=== PATIENT | female | born 1965 | race Two or more races ===

== ENCOUNTER → 2017-06-14 12:50 | Outpatient (CLI) | payer OTHER ==
[~2017-06-14 12:50] MED LIST: AMOX1TAB5 PO; FLONASE16 GM NS; IOPHEN DM-100 MG/5 M PO; METFORMIN HCL500 MG; MOTRIN800 MG PO; SEPTRA DS TABLE1 TAB PO; ZYRTEC10 MG PO
== END | disposition home or self-care (01) ==
LOC: LAB 12:50
DX: J11.1 Influenza due to unidentified influenza virus with other respiratory manifestations (principal)

== ENCOUNTER 2017-09-20 12:28 | Outpatient (CLI) | payer OTHER ==
[~2017-09-20] VITALS: Ht 154.9 cm; Wt 89.4 kg
== END 2017-09-20 12:40 | disposition home or self-care (01) ==
LOC: OFIC 805 12:28
DX: J03.80 Acute tonsillitis due to other specified organisms (principal); J30.89 Other allergic rhinitis; R22.1 Localized swelling, mass and lump, neck

== ENCOUNTER 2018-07-10 12:42 | Outpatient (CLI) | payer OTHER ==
[~2018-07-10] VITALS: Ht 152.4 cm; Wt 86.2 kg
== END 2018-07-10 13:00 | disposition home or self-care (01) ==
LOC: OFIC 805 12:42
DX: G47.63 Sleep related bruxism (principal); M26.69 Other specified disorders of temporomandibular joint; M62.838 Other muscle spasm

== ENCOUNTER → 2018-08-16 11:16 | Outpatient (CLI) | payer OTHER | END | disposition home or self-care (01) | LOC: LAB 11:16 | DX: E78.49 Other hyperlipidemia (principal); R42 Dizziness and giddiness; Z00.00 Encounter for general adult medical examination without abnormal findings; R10.2 Pelvic and perineal pain ==

== ENCOUNTER → 2018-08-21 06:41 | Outpatient (CLI) | payer OTHER | END | disposition home or self-care (01) | LOC: LAB 06:41 | DX: D64.89 Other specified anemias (principal); M05.89 Other rheumatoid arthritis with rheumatoid factor of multiple sites; Z79.1 Long term (current) use of non-steroidal anti-inflammatories (NSAID); Z01.810 Encounter for preprocedural cardiovascular examination; I11.9 Hypertensive heart disease without heart failure; N39.8 Other specified disorders of urinary system ==

== ENCOUNTER → 2018-09-16 15:00 | Outpatient (CLI) | payer OTHER | END | disposition home or self-care (01) | LOC: LAB 15:00 | DX: J11.1 Influenza due to unidentified influenza virus with other respiratory manifestations (principal); A49.8 Other bacterial infections of unspecified site; R50.9 Fever, unspecified ==

== ENCOUNTER 2018-09-26 10:08 | Outpatient (CLI) | payer OTHER | END 2018-09-26 16:33 | disposition home or self-care (01) | LOC: RAD 10:08 | DX: J45.41 Moderate persistent asthma with (acute) exacerbation (principal) ==

== ENCOUNTER → 2019-08-29 06:37 | Outpatient (CLI) | payer OTHER | END | disposition home or self-care (01) | LOC: LAB 06:37 | PROVIDERS: ATTEND Internal Medicine | DX: E13.69 Other specified diabetes mellitus with other specified complication (principal); I10 Essential (primary) hypertension; E55.9 Vitamin D deficiency, unspecified ==

== ENCOUNTER 2019-09-15 15:53 | Emergency (ER) | payer OTHER ==
[~2019-09-15] VITALS: Ht 152.4 cm; Wt 81.6 kg
== END 2019-09-15 20:02 | disposition home or self-care (01) ==
LOC: ER 15:53
DX: S43.492A Other sprain of left shoulder joint, initial encounter (principal); S13.8XXA Sprain of joints and ligaments of other parts of neck, initial encounter; M54.6 Pain in thoracic spine; V49.9XXA Car occupant (driver) (passenger) injured in unspecified traffic accident, initial encounter; Y93.89 Activity, other specified; Y92.488 Other paved roadways as the place of occurrence of the external cause; Y99.8 Other external cause status

== ENCOUNTER → 2019-10-08 07:10 | Outpatient (CLI) | payer OTHER ==
[~2019-10-08 07:10] MED LIST changes: +DIOVAN40 MG; +METFORMIN HCL500 M2
== END | disposition home or self-care (01) ==
LOC: RAD 07:10 → LAB 07:10
PROVIDERS: ATTEND Physical Medicine & Rehabilitation
DX: M65.812 Other synovitis and tenosynovitis, left shoulder (principal); M65.822 Other synovitis and tenosynovitis, left upper arm

== ENCOUNTER 2019-10-13 13:53 | Outpatient (CLI) | payer OTHER | END 2019-10-13 16:38 | disposition home or self-care (01) | LOC: CERTIFICAD 13:53 | PROVIDERS: ATTEND Family Medicine | DX: Z11.1 Encounter for screening for respiratory tuberculosis (principal) ==

== ENCOUNTER 2019-11-10 13:00 | Outpatient (CLI) | payer OTHER | END 2019-11-10 15:00 | disposition home or self-care (01) | LOC: PPH VACUNA 13:00 | DX: Z23 Encounter for immunization (principal) ==

== ENCOUNTER 2019-11-11 08:00 | Outpatient (CLI) | payer OTHER | END 2019-11-11 15:00 | disposition home or self-care (01) | LOC: LAB 08:00 | DX: D64.89 Other specified anemias (principal); J11.1 Influenza due to unidentified influenza virus with other respiratory manifestations; E78.89 Other lipoprotein metabolism disorders; E03.8 Other specified hypothyroidism; N39.0 Urinary tract infection, site not specified; Z85.43 Personal history of malignant neoplasm of ovary; E11.9 Type 2 diabetes mellitus without complications; D51.8 Other vitamin B12 deficiency anemias; E55.9 Vitamin D deficiency, unspecified ==

== ENCOUNTER 2020-02-09 15:28 | Outpatient (CLI) | payer OTHER | END 2020-02-09 18:00 | disposition home or self-care (01) | LOC: PPH VACUNA 15:28 | DX: Z23 Encounter for immunization (principal) ==

== ENCOUNTER → 2020-08-31 14:31 | Outpatient (CLI) | payer OTHER | END | disposition home or self-care (01) | LOC: LAB 14:31 | PROVIDERS: ATTEND Dentist General Practice | DX: Z20.828 Contact with and (suspected) exposure to other viral communicable diseases (principal) ==

== ENCOUNTER → 2020-10-14 09:10 | Outpatient (CLI) | payer OTHER | END | disposition home or self-care (01) | LOC: LAB 09:10 | PROVIDERS: ATTEND Emergency Medicine Pediatric Emergency Medicine | DX: Z03.818 Encounter for observation for suspected exposure to other biological agents ruled out (principal) ==

== ENCOUNTER → 2020-11-22 | Outpatient (CLI) | payer OTHER | END | disposition home or self-care (01) | LOC: PPH VACUNA 06:11 | DX: Z23 Encounter for immunization (principal) ==

== ENCOUNTER 2021-02-16 15:27 | Outpatient (CLI) | payer OTHER | END 2021-02-16 15:31 | disposition home or self-care (01) | LOC: LAB 15:27 | DX: Z03.818 Encounter for observation for suspected exposure to other biological agents ruled out (principal) ==

== ENCOUNTER 2021-05-27 13:08 | Outpatient (CLI) | payer OTHER | END 2021-05-27 23:00 | disposition home or self-care (01) | LOC: LAB 13:08 | PROVIDERS: ATTEND Emergency Medicine Pediatric Emergency Medicine | DX: Z20.818 Contact with and (suspected) exposure to other bacterial communicable diseases (principal); Z20.828 Contact with and (suspected) exposure to other viral communicable diseases ==

== ENCOUNTER 2021-11-15 09:49 | Outpatient (CLI) | payer OTHER | END 2021-11-15 09:54 | disposition home or self-care (01) | LOC: PPH VACUNA 09:49 | PROVIDERS: ATTEND Emergency Medicine Pediatric Emergency Medicine | DX: Z23 Encounter for immunization (principal) ==

== ENCOUNTER → 2021-12-01 06:00 | Outpatient (CLI) | payer OTHER | END | disposition home or self-care (01) | LOC: LAB 06:00 | PROVIDERS: ATTEND General Practice | DX: M54.2 Cervicalgia (principal); Z00.00 Encounter for general adult medical examination without abnormal findings; E78.5 Hyperlipidemia, unspecified; E55.9 Vitamin D deficiency, unspecified; N39.0 Urinary tract infection, site not specified; R42 Dizziness and giddiness; R10.9 Unspecified abdominal pain ==

== ENCOUNTER 2022-02-14 15:55 | Outpatient (CLI) | payer OTHER | END 2022-02-14 16:00 | disposition home or self-care (01) | LOC: LAB 15:55 | PROVIDERS: ATTEND Obstetrics & Gynecology | DX: Z20.828 Contact with and (suspected) exposure to other viral communicable diseases (principal); Z20.818 Contact with and (suspected) exposure to other bacterial communicable diseases ==

== ENCOUNTER 2022-03-21 13:00 | Outpatient (CLI) | payer OTHER | END 2022-03-21 13:04 | disposition home or self-care (01) | LOC: TOM 13:00 → RAD 15:46 | PROVIDERS: ATTEND Internal Medicine Pulmonary Disease | DX: J45.31 Mild persistent asthma with (acute) exacerbation (principal); U07.1 COVID-19; R06.02 Shortness of breath ==

== ENCOUNTER 2022-09-12 12:05 | Outpatient (CLI) | payer OTHER | END 2022-09-12 12:06 | disposition home or self-care (01) | LOC: MAMO-SONO 12:05 | PROVIDERS: ATTEND Surgery | DX: N60.11 Diffuse cystic mastopathy of right breast (principal); N60.12 Diffuse cystic mastopathy of left breast; Z12.31 Encounter for screening mammogram for malignant neoplasm of breast ==

== ENCOUNTER → 2022-11-29 09:10 | Outpatient (CLI) | payer OTHER ==
[2022-11-29 08:42] LABS: HEMOGLOBIN 11.1 g/dL (12.0-15.00); MEAN CELL VOLUME 83.2 fL (80.00-100.00); MEAN CORPUSCULAR HEMOGLOBIN 27.2 pg (27.00-32.0); MEAN CORPUSCULAR HGB CONC 32.7 g/dl (32.0-36.0); PLATELET COUNT 228 K/uL (150-450); RED BLOOD COUNT 4.09 M/uL (4.00-6.00); RED CELL DISTRIBUTION WIDTH 14.2 % (11.5-14.5)
[2022-11-29 09:30] LABS: ALBUMIN 3.7 gm/dL (3.4-5.0); BILIRUBIN TOTAL 0.55 mg/dL (0.3-1.2); BILIRUBIN,CONJUGATED 0.14 mg/dL (0.0-0.2); BILIRUBIN,UNCONJUGATED 0.41 mg/dL (0.0-0.6); CALCIUM 8.7 mg/dL (8.5-10.1); CHOL HDL RATIO 5.1 (0-5.0); CREATININE SERUM 0.48 mg/dL (0.55-1.02); GFR 132.83; GLOBULINA 3.9 G/DL (2.4-3.5); POTASSIUM 3.63 mEq/L (3.5-5.1); T4 TOTAL 10.02 UG/DL (4.8-13.9); TOTAL PROTEIN 7.6 gm/dL (6.4-8.2); TSH 1.43 uIU/mL (0.358-3.74)
[2022-11-29 11:35] LABS: T3 TOTAL 1.16 ng/ml (0.846-2.02); VITAMIN D3 25 HYDROXY 24.11 ng/ml (30-120)
[2022-11-29 16:03] LABS: URINE APPEARANCE Clear; URINE BILIRRUBIN Negative (NEGATIVE); URINE BLOOD Negative; URINE COLOR Yellow; URINE GLUCOSE Negative (NEGATIVE); URINE LEUKOCYTE Small; URINE NITRATE Negative; URINE PROTEIN Negative (NEGATIVE); URINE UROBILINOGEN 0.2 E.U./dl
[2022-11-29 16:06] LABS: URINE BACTERIA 255.7 uL (0.0-1933); URINE EPITHELIAL CELLS 32.7 uL (0.0-38.8); URINE RBC 18.5 uL (0.0-20.8); URINE WBC 76.9 uL (0.0-23.2)
== END | disposition home or self-care (01) ==
LOC: LAB 09:10
PROVIDERS: ATTEND General Practice
DX: Z00.00 Encounter for general adult medical examination without abnormal findings (principal); E78.5 Hyperlipidemia, unspecified; E55.9 Vitamin D deficiency, unspecified; N39.0 Urinary tract infection, site not specified; R42 Dizziness and giddiness; R10.2 Pelvic and perineal pain

== ENCOUNTER 2023-02-12 06:43 | Outpatient (CLI) | payer OTHER ==
[2023-02-12 08:21] LABS: HEMATOCRIT 34.6 % (36.0-45.00); HEMOGLOBIN 11.5 g/dL (12.0-15.00); MEAN CELL VOLUME 82.8 fL (80.00-100.00); MEAN CORPUSCULAR HEMOGLOBIN 27.5 pg (27.00-32.0); MEAN CORPUSCULAR HGB CONC 33.2 g/dl (32.0-36.0); PLATELET COUNT 232 K/uL (150-450); RED BLOOD COUNT 4.18 M/uL (4.00-6.00); RED CELL DISTRIBUTION WIDTH 14.4 % (11.5-14.5)
[2023-02-12 08:37] LABS: ERYTHROCYTE SEDIMENTATION RATE 56 mm/hr
[2023-02-12 09:16] LABS: ALBUMIN 3.7 gm/dL (3.4-5.0); BILIRUBIN TOTAL 0.53 mg/dL (0.3-1.2); CALCIUM 8.8 mg/dL (8.5-10.1); CHOL HDL RATIO 4.4 (0-5.0); CREATININE SERUM 0.54 mg/dL (0.55-1.02); FREE TRIODOTIRONINE 2.55 pg/ml (2.18-3.98); GFR 115.55; GLOBULINA 3.8 G/DL (2.4-3.5); POTASSIUM 3.83 mEq/L (3.5-5.1); T4 TOTAL 8.73 UG/DL (4.8-13.9); TOTAL PROTEIN 7.5 gm/dL (6.4-8.2); TSH 1.72 uIU/mL (0.358-3.74)
[2023-02-12 09:18] LABS: C-REACTIVE PROTEIN 0.74 MG/DL (0.00-0.29)
[2023-02-13 17:14] LABS: URINE APPEARANCE Clear; URINE BILIRRUBIN Negative (NEGATIVE); URINE BLOOD Negative; URINE COLOR Yellow; URINE EPITHELIAL CELLS 6.4 uL (0.0-38.8); URINE GLUCOSE Negative (NEGATIVE); URINE LEUKOCYTE Small; URINE NITRATE Negative; URINE PROTEIN Negative (NEGATIVE); URINE RBC 27.1 uL (0.0-20.8); URINE WBC 26.1 uL (0.0-23.2)
== END 2023-02-12 23:00 | disposition home or self-care (01) ==
LOC: LAB 06:43
PROVIDERS: ATTEND Internal Medicine
DX: I10 Essential (primary) hypertension (principal); E11.9 Type 2 diabetes mellitus without complications; E55.9 Vitamin D deficiency, unspecified; E78.9 Disorder of lipoprotein metabolism, unspecified; Z12.11 Encounter for screening for malignant neoplasm of colon; Z13.29 Encounter for screening for other suspected endocrine disorder

== ENCOUNTER 2023-05-13 14:40 | Outpatient (CLI) | payer OTHER | END 2023-05-13 14:43 | disposition home or self-care (01) | LOC: RAD 14:40 | PROVIDERS: ATTEND Internal Medicine | DX: M54.50 Low back pain, unspecified (principal) ==

== ENCOUNTER 2023-12-13 14:13 | Outpatient (CLI) | payer OTHER | END 2023-12-13 15:13 | disposition home or self-care (01) | LOC: RAD 14:13 | PROVIDERS: ATTEND Internal Medicine Pulmonary Disease | DX: R07.9 Chest pain, unspecified (principal) ==

== ENCOUNTER 2023-12-18 14:10 | Outpatient (CLI) | payer OTHER | END 2023-12-18 14:13 | disposition home or self-care (01) | LOC: MAMO-SONO 14:10 | PROVIDERS: ATTEND Surgery | DX: N60.11 Diffuse cystic mastopathy of right breast (principal); N60.12 Diffuse cystic mastopathy of left breast ==

== ENCOUNTER 2024-01-02 14:32 | Inpatient (IN) | payer OTHER ==
[~2024-01-02] VITALS: Ht 152.4 cm; Wt 97.5 kg
[2024-01-02] MEDS ORDERED: METFORMIN HCL500 M3 (15:16)
--- NOTE | 2024-01-02 15:16 | NUR ---
SE RECIBE PTE ALERTA Y ORIENTADA LA CUAL REFIERE VNEIR POR DOLOR ABDOMINAL, DOLOR DE BARB, ESCALOFRIOS, VOMITOS Y DIARREAS. SE MIDEN S/V A PTE, PTE CON TEMP [phone]. PTE SE UBICA.
[2024-01-02] MEDS ORDERED: 0.9 % SODIUM CHLORIDE 1,000 ML IV STA (17:58)
[2024-01-02] MEDS ORDERED: FAMOTIDINE/PF 20 MG/2 ML VIAL IV ONE (18:00)
[2024-01-02] MEDS ORDERED: ACETAMINOPHEN 500 MG GEL..CAP PO ONE (18:00)
[2024-01-02 19:08] LABS: HEMATOCRIT 33.8 % (36.0-45.00); MEAN CELL VOLUME 84.7 fL (80.00-100.00); MEAN CORPUSCULAR HEMOGLOBIN 27.6 pg (27.00-32.0); MEAN CORPUSCULAR HGB CONC 32.6 g/dl (32.0-36.0); PLATELET COUNT 193 K/uL (150-450); RED BLOOD COUNT 3.99 M/uL (4.00-6.00); RED CELL DISTRIBUTION WIDTH 14.1 % (11.5-14.5)
[2024-01-02 19:15] LABS: ALBUMIN 3.5 gm/dL (3.4-5.0); BILIRUBIN TOTAL 0.95 mg/dL (0.3-1.2); CALCIUM 8.8 mg/dL (8.5-10.1); CREATININE SERUM 0.75 mg/dL (0.55-1.02); GFR 79.09; GLOBULINA 4.3 G/DL (2.4-3.5); POTASSIUM 3.09 mEq/L (3.5-5.1); TOTAL PROTEIN 7.8 gm/dL (6.4-8.2)
[2024-01-02 19:17] LABS: INR 1.08; PARTIAL THROMBOPLASTIN TIME 29.6 SECONDS (22.0-34.0); PROTHROMBIN TIME 11.7 SECONDS (9.0-11.5)
--- NOTE | 2024-01-02 19:45 | NUR ---
SE ORIENTA A PACIENTE SOBRE ORDENES MEDICAS Y REFIERE ENTENDER. SE COLECTAN MUESTRAS DE LABORATORIO BAJO MEDIDAS ASEPTICAS. SE CANALIZA Y SE ADMINISTRAN MEDICAMENTOS INOCENCIO ORDEN MEDICA. SE REALIZA EKG.
[2024-01-02 19:56] LABS: PH,URINE 5.5 (5.0-8.0); URINE APPEARANCE Clear; URINE BILIRRUBIN Negative (NEGATIVE); URINE BLOOD Moderate; URINE COLOR Yellow; URINE GLUCOSE Negative (NEGATIVE); URINE KETONE Negative (NEGATIVE); URINE LEUKOCYTE Negative; URINE NITRATE Negative; URINE PROTEIN Negative (NEGATIVE); URINE UROBILINOGEN 0.2 E.U./dl
[2024-01-02 20:00] LABS: URINE BACTERIA 17.6 uL (0.0-1933); URINE EPITHELIAL CELLS 1.8 uL (0.0-38.8); URINE WBC 4.7 uL (0.0-23.2)
[2024-01-02] MEDS ORDERED: CEFTRIAXONE SODIUM 2,000 MG VIAL IV ONE (23:15)
[2024-01-03] MEDS ORDERED: PIPERACILLIN/TAZOBACTAM SODIUM 3.375 GM in DEXTROSE 5 % IN WATER 100 ML IV SCH (00:09)
[2024-01-03] MEDS ORDERED: 0.9 % SODIUM CHLORIDE 1,000 ML IV SCH (00:15)
[2024-01-03] MEDS ORDERED: ACETAMINOPHEN 500 MG GEL..CAP PO PRN (00:15)
[2024-01-03] MEDS ORDERED: KETOROLAC TROMETHAMINE 15 MG VIAL IU ONE (00:15)
[2024-01-03] MEDS ORDERED: POTASSIUM CHLORIDE IN 0.9%NACL 1,000 ML IV ONE (00:15)
[2024-01-03] MEDS ORDERED: DEXTROSE 50 % IN WATER 0.5 G/ML DISP.SYRIN IV PRN (00:15)
[2024-01-03] MEDS ORDERED: INSULIN LISPRO 1,000 UNIT/10 ML UNITS SUBCUTANEO PRN (00:15)
[2024-01-03] MEDS ORDERED: ENALAPRILAT DIHYDRATE 1.25 MG/ML VIAL IV PRN (00:15)
[2024-01-03 01:30] VITALS: BP 126/71; O2SAT 100
[2024-01-03 02:23] LABS: D DIMER 0.68 MG/L; INR 1.21; PARTIAL THROMBOPLASTIN TIME 30.8 SECONDS (22.0-34.0)
[2024-01-03 04:55] VITALS: BP 92/61
[2024-01-03 08:50] VITALS: BP 129/74; O2SAT 97
[2024-01-03] MEDS ORDERED: ENOXAPARIN SODIUM 40 MG/0.4 ML SYRINGE SUBCUTANEO SCH (09:00)
[2024-01-03] MEDS ORDERED: FAMOTIDINE/PF 20 MG in 0.9 % SODIUM CHLORIDE 8 ML IV PUSH SCH (09:00)
[2024-01-03 16:38] VITALS: BP 144/78
[2024-01-03] MEDS ORDERED: CEFTRIAXONE SODIUM 2,000 MG in 0.9 % SODIUM CHLORIDE 100 ML IV SCH (18:00)
[2024-01-04 02:42] VITALS: BP 127/75; O2SAT 97
[2024-01-04 09:34] VITALS: BP 143/72; O2SAT 99
[2024-01-04 11:50] LABS: HEMATOCRIT 29.3 % (36.0-45.00); HEMOGLOBIN 9.9 g/dL (12.0-15.00); MEAN CELL VOLUME 84.1 fL (80.00-100.00); MEAN CORPUSCULAR HEMOGLOBIN 28.3 pg (27.00-32.0); MEAN CORPUSCULAR HGB CONC 33.7 g/dl (32.0-36.0); PLATELET COUNT 170 K/uL (150-450); RED BLOOD COUNT 3.48 M/uL (4.00-6.00); RED CELL DISTRIBUTION WIDTH 14.6 % (11.5-14.5)
[2024-01-04 12:14] LABS: ALBUMIN 2.7 gm/dL (3.4-5.0); BILIRUBIN TOTAL 0.49 mg/dL (0.3-1.2); CREATININE SERUM 0.56 mg/dL (0.55-1.02); GFR 110.8; GLOBULINA 3.8 G/DL (2.4-3.5); POTASSIUM 3.37 mEq/L (3.5-5.1); TOTAL PROTEIN 6.5 gm/dL (6.4-8.2)
[2024-01-04 17:36] VITALS: BP 144/58; O2SAT 95
[2024-01-05 02:35] VITALS: BP 154/83; O2SAT 97
[2024-01-05 09:50] VITALS: BP 138/83; O2SAT 98
[2024-01-05 16:50] VITALS: BP 137/80; O2SAT 92
[2024-01-06 02:44] VITALS: BP 124/81; O2SAT 98
[2024-01-06 07:24] LABS: CALCIUM 7.8 mg/dL (8.5-10.1); CREATININE SERUM 0.36 mg/dL (0.55-1.02); GFR 184.49; POTASSIUM 3.66 mEq/L (3.5-5.1)
[2024-01-06 07:25] LABS: C-REACTIVE PROTEIN 12.1 MG/DL (0.00-0.29)
[2024-01-06 09:03] VITALS: BP 138/85
[2024-01-06 17:46] VITALS: BP 179/63
[2024-01-07 00:44] VITALS: BP 150/70; O2SAT 99
[2024-01-07 06:29] LABS: HEMATOCRIT 26.1 % (36.0-45.00); MEAN CELL VOLUME 83.4 fL (80.00-100.00); MEAN CORPUSCULAR HEMOGLOBIN 28.8 pg (27.00-32.0); MEAN CORPUSCULAR HGB CONC 34.5 g/dl (32.0-36.0); PLATELET COUNT 222 K/uL (150-450); RED BLOOD COUNT 3.13 M/uL (4.00-6.00); RED CELL DISTRIBUTION WIDTH 14.5 % (11.5-14.5)
[2024-01-07 08:37] VITALS: BP 156/84
[2024-01-07] MEDS ORDERED: LOSARTAN POTASSIUM 50 MG TABLET PO NR (17:46)
[2024-01-07 18:59] VITALS: BP 153/84; O2SAT 98
[2024-01-08 00:34] VITALS: BP 140/77
[2024-01-08] MEDS ORDERED: LOSARTAN POTASSIUM 50 MG TABLET PO SCH (09:00)
[2024-01-08 09:15] VITALS: BP 123/70
== END 2024-01-08 15:59 | disposition home or self-care (01) | DRG 300 ==
LOC: ER → MEDJ 01-03 00:12 → SEC-K 01-03 00:12 → MEDJ 01-03 02:59
PROVIDERS: Emergency Medicine; ADMIT Internal Medicine; ATTEND Internal Medicine
PROC: BW21ZZZ Computerized Tomography (CT Scan) of Abdomen and Pelvis (ICD-10-PCS; principal; 2024-01-02)
PROC: BB24ZZZ Computerized Tomography (CT Scan) of Bilateral Lungs (ICD-10-PCS; 2024-01-02)
PROC: BF42ZZZ Ultrasonography of Gallbladder (ICD-10-PCS; 2024-01-03)
PROC: B54DZZZ Ultrasonography of Bilateral Lower Extremity Veins (ICD-10-PCS; 2024-01-03)
DX: E11.51 Type 2 diabetes mellitus with diabetic peripheral angiopathy without gangrene (principal); L03.116 Cellulitis of left lower limb; R65.10 Systemic inflammatory response syndrome (SIRS) of non-infectious origin without acute organ dysfunction; Z68.41 Body mass index [BMI] 40.0-44.9, adult; E11.628 Type 2 diabetes mellitus with other skin complications; K76.0 Fatty (change of) liver, not elsewhere classified; K80.20 Calculus of gallbladder without cholecystitis without obstruction; I10 Essential (primary) hypertension; E66.9 Obesity, unspecified; E87.6 Hypokalemia; Z79.84 Long term (current) use of oral hypoglycemic drugs

== ENCOUNTER 2024-10-06 09:22 | Outpatient (CLI) | payer OTHER ==
[~2024-10-06 09:22] MED LIST changes: +METFORMIN HCL500 M3
[2024-10-06 13:08] LABS: COVID-19 AG NEGATIVE (NEGATIVE)
== END 2024-10-06 12:44 | disposition home or self-care (01) ==
LOC: LAB 09:22
DX: J11.1 Influenza due to unidentified influenza virus with other respiratory manifestations (principal); Z20.828 Contact with and (suspected) exposure to other viral communicable diseases

== ENCOUNTER 2024-12-22 09:30 | Outpatient (CLI) | payer OTHER | END 2024-12-22 09:35 | disposition home or self-care (01) | LOC: MAMO-SONO 09:30 | PROVIDERS: ATTEND Surgery | DX: N60.11 Diffuse cystic mastopathy of right breast (principal); N60.12 Diffuse cystic mastopathy of left breast ==